=== PATIENT | female | born 1980 | race Caucasian/White ===

== ENCOUNTER 2020-08-24 10:41 | Emergency (ER) | payer OTHER, SELFPAY ==
[2020-08-24 10:42] VITALS: BP 131/79; PULSE 94; RESP 16; TEMP 36.5; O2SAT 99; BMI 31.1
--- NOTE | 2020-08-24 10:57 | EKG12_ITS ---
Test Reason : CP Blood Pressure : / mmHG Vent. Rate : 081 BPM Atrial Rate : 081 BPM P-R Int : 156 ms QRS Dur : 076 ms QT Int : 348 ms P-R-T Axes : 069 072 060 degrees QTc Int : 404 ms Normal sinus rhythm with sinus arrhythmia Normal ECG Confirmed by CYN LEMOS, WESLEY ([id number]), staff editor JENNIFER CHAPPELL ([id number]) on 08/27/2020 2:57:15 PM Referred By: DARRICK Confirmed By:WESLEY ADDISON MD
--- NOTE | 2020-08-24 10:57 | EX.ED.DYSGE1 ---
HPI History of Present Illness Chief Complaint: Chest Pain Informant: patient Narrative Narrative: 40-year-old female states that she woke this morning around 0400 had a sharp pain She needed to go into work and open up the business right upper chest. She states nothing seems to make it better or worse. and then once that was done she called her boss and went to urgent care they did an EKG and advised her to come to the emergency. She denies any DVT PE risk factors. She states nothing she does not recall anything that would have injured her chest. She denies any cough or fever. She states that the pain has gotten significantly better than when it first started PFSH PFSH Medical History Arthritis Smoker Home Medications No Known/Unobtainable [No Known Home Medications] 03/16/15 [History Last Taken Unknown] Allergy/AdvReac Type Severity Reaction Status Date / Time No Known Allergies Allergy Verified 07/13/14 13:39 Surgical History History of appendectomy Social History (Updated 08/24/20 @ 10:[address] Emil Moore DO) Smoking Status: Current every day smoker substance use type: does not use ROS ROS ED Constitutional Constitutional ED: Denies chills or weight loss Eyes Eyes: Denies change in vision or diplopia ENT ENT ED: Denies ear pain, rhinorrhea or sore throat Cardiovascular Cardiovascular: Reports chest pain; Denies orthopnea, palpitations or racing heartbeat Respiratory/Chest Respiratory/Chest: Denies cough, dyspnea or orthopnea Gastrointestinal Gastrointestinal: Denies abdominal pain, diarrhea, nausea or vomiting Genitourinary Genitourinary ED: Denies dysuria, hematuria or urinary frequency Musculoskeletal Musculoskeletal: Denies arthralgias or myalgias Integumentary Denies abscess or rash Neurologic Neurologic: Denies headache(s) or weakness Psychiatric Psychiatric: Denies anxiety, depression, suicidal ideation or suicidal thoughts Endocrine Endocrinology: Denies polydipsia, polyphagia or polyuria Allergic/Immunologic Allergic/Immunologic ED: Denies mouth swelling, tongue swelling or urticaria EXAM Physical Exam Const Vital Signs: 08/24/20 10:42 08/24/20 10:47 Temperature 97.7 F L Temperature Source Temporal Pulse Rate 94 Respiratory Rate 16 Respiratory Effort Normal Non-Labored Blood Pressure 131/79 H Blood Pressure Mean 96 Pulse Ox 99 Oxygen Delivery Method Room Air Positive well nourished and well developed General Appearance ED: well developed HEENT Reports normocephalic, head/scalp atraumatic and moist mucous membranes Eyes PERRL and EOMs intact bilaterally Neck no lymphadenopathy, supple and no JVD Resp normal respiratory effort and clear to auscultation bilaterally Cardio regular rate, regular rhythm and no murmurs GI normal to inspection, nondistended, normoactive bowel sounds and non-tender Palpation: soft Back/Spine no CVA tenderness and normal ROM Extremity normal to inspection General Extremety ED: Negative for edema General Extremity: Negative for edema Neuro oriented x3 and CN's II-XII intact bilaterally Sensorium / Orientation: alert Motor Exam: strength 5/5 throughout Psych mental status grossly normal Mood & Affect: Negative for depressed or tearful Skin no rashes or lesions noted and no wounds MDM MDM MDM Narrative Medical decision making narrative: My impression of the patient's chest x-ray is no acute process. Basic blood work including D-dimer troponin negative. At this point I think the patient can be safely discharged home. I think that this is not represent PE dissection or other acute emergency that would require admission. Return if worsening or concerns Lab Data Labs: Laboratory Results - last 24 hr 08/24/20 08/24/20 08/24/20 10:00 10:00 10:00 WBC 10.7 RBC 4.84 Hgb 15.1 H Hct 46.7 MCV 96.5 MCH 31.2 MCHC 32.3 RDW Std Deviation 43.8 RDW Coeff of Danielle 12.3 Plt Count 278 MPV 10.9 Immature Gran % (Auto) 0.400 Neut % (Auto) 66.4 Lymph % (Auto) 25.4 [place] % (Auto) 5.5 Eos % (Auto) 1.8 Baso % (Auto) 0.5 Absolute Neuts (auto) 7.1 Absolute Lymphs (auto) 2.71 Nucleated RBC % 0 D-Dimer Quant (PE/DVT) 0.34 Sodium 136 Potassium 4.2 Chloride 106 Carbon Dioxide 25.0 Anion Gap 5 BUN 12 Creatinine 0.82 Estim Creat Clear Calc 73.57 Est GFR (MDRD) Af Amer 101 Est GFR (MDRD) Non-Af 83 BUN/Creatinine Ratio 14.7 Glucose 104 Calcium 10.6 H Troponin I < 0.015 EKG Initial EKG: Attestation: I personally reviewed and interpreted this EKG as follows: Comments: EKG shows a normal sinus rhythm with sinus arrhythmia at a rate of 81 no concerning features of ACS or ectopy noted Discharge Plan Triage Chief Complaint: Chest Pain ED Provider: Emil Moore Dx/Rx/DC Orders Clinical Impression: Chest pain Instructions: ED Chest Pain, Uncertain Cause Prescriptions: No Action No Known Home Medications RF: 0 Stand Alone Forms: ED Work / School Excuse Primary Care Provider: Анна Mehta NP Referrals: Анна Mehta NP, [employer] [Primary Care Provider] - As Needed Disposition Disposition: Home, self care
[2020-08-24 11:14] LABS: Absolute Lymphocyte Count 2.71 X10^3/uL (0.83-4.51); Absolute Neutrophil Count 7.1 X10^3/uL (2.0-7.7); Basophil# 0.05 X10^3/uL; Basophil% 0.5 % (0-1); Eosinophil# 0.19 X10^3/uL; Eosinophils% 1.8 % (0-5); Hematocrit 46.7 % (37-47); Hemoglobin 15.1 g/dL (12.0-15.0); Lymphocyte # 2.71 X10^3/ul (0.83-4.51); Lymphocyte % 25.4 % (19-41); Mean Corp Hgb Conc 32.3 g/dL (32-36); Mean Corpuscular Hgb 31.2 pg (27.0-32.0); Mean Corpuscular Volume 96.5 fL (81-99); Mean Platelet Vol. 10.9 fl (6.2-12.0); Monocyte# 0.59 X10^3/uL; Monocyte% 5.5 % (0-10); NRBC Flagged by Analyzer 0 % (0-5); Neutrophil # 7.08 X10^3/uL (2.7-7.7); Neutrophil % 66.4 % (47-70); Platelet Count 278 K/mm3 (150-450); RBC Distribution Width CV 12.3 % (11.6-14.6); RBC Distribution Width SD 43.8 fl (35.1-43.9); Red Blood Count 4.84 M/mm3 (4.2-5.4); White Blood Count 10.7 K/mm3 (4.4-11.0)
--- NOTE | 2020-08-24 11:16 | RAD_ITS ---
STUDY: X-RAY CHEST REASON FOR EXAM: Female, 40 years old. Chest pain TECHNIQUE: Single AP portable view of the chest. COMPARISON: None. FINDINGS: EKG electrodes are seen. The lungs are clear and expanded. There is no demonstrated pleural abnormality. Normal size heart. Normal mediastinum and eugenia. Normal visualized pulmonary arteries. Normal visualized aortic arch and descending thoracic aorta. Normal visualized thoracic spine. Normal visualized ribs, clavicles, and shoulders. There is no demonstrated abnormality of the visualized soft tissue structures of the upper abdomen. RAD/Chest 1 View (Portable) IMPRESSION: Normal x-ray examination of the chest. Electronically Signed: Neir Godinez MD at 12:02 EDT , Service support ,
[2020-08-24 11:23] LABS: D-Dimer Quantitative (DVT/PE) 0.34 FEU/ug/m (0.27-0.49)
[2020-08-24 11:31] LABS: Anion Gap 5 (5-15); BUN 12 mg/dL (7-18); BUN/Creat Ratio 14.7 RATIO (10-20); Calcium,Total 10.6 mg/dL (8.5-10.1); Chloride 106 mmol/L (98-107); Creatinine, Serum 0.82 mg/dL (0.55-1.02); EST Glomerular Filtration Rate 83 mL/min (>60); Est Glom Filt Rate - Afr Amer 101 mL/min (>60); Estimated Creatinine Clearance 73.57 ml/min; Glucose 104 mg/dL (74-106); Potassium 4.2 mmol/L (3.5-5.1); Sodium Level 136 mmol/L (136-145)
[2020-08-24 11:46] VITALS: BP 126/80; PULSE 89; RESP 16; O2SAT 98
== END 2020-08-24 11:47 | disposition home or self-care (01) ==
PROVIDERS: Emergency Provider Emergency Medicine; PCP Nurse Practitioner Family
DX: R07.9 Chest pain, unspecified (principal); M19.90 Unspecified osteoarthritis, unspecified site; F17.200 Nicotine dependence, unspecified, uncomplicated
CPT/HCPCS: 71045; 80048; 84484; 85025; 85379; 93005; 99284; A4216

== ENCOUNTER → 2020-12-16 | Outpatient (CLI) | payer OTHER, SELFPAY | END | disposition home or self-care (01) | LOC: LABSPEC 12-18 11:27 | PROVIDERS: PCP Nurse Practitioner Family; Referring Provider Nurse Practitioner Family; Visit Provider Nurse Practitioner Family | DX: R05 Cough (principal) | CPT/HCPCS: 87635; U0005; U0003 ==

== ENCOUNTER 2024-05-26 07:06 | Emergency (ER) | payer OTHER, SELFPAY ==
[2024-05-26 07:07] VITALS: BP 120/88; PULSE 96; RESP 18; TEMP 36.4; O2SAT 98; BMI 28.3
[2024-05-26 07:09] VITALS: BP 120/88; PULSE 96; RESP 18; TEMP 36.4; O2SAT 98
--- NOTE | 2024-05-26 07:18 | RAD_ITS ---
PROCEDURE: CHEST 1 VIEW (PORTABLE) REASON FOR EXAM: 44-year-old female, fever, cough, shortness of breath and chest tightness. TECHNIQUE: Frontal view of the chest. COMPARISON: Chest radiograph 08/24/2020. FINDINGS: The heart size is normal. The lungs are clear. No focal consolidation, pleural effusion or pneumothorax. The bones are unremarkable. RAD/Chest 1 View (Portable) IMPRESSION: NEGATIVE CHEST. Reading Location: [id number]
--- NOTE | 2024-05-26 07:23 | EX.ED.DYSGE1 ---
HPI History of Present Illness Chief Complaint: Shortness of Breath Detail of Chief Complaint: Fever, cough, shortness of breath Informant: patient Narrative Narrative: Patient presents the emergency department with complaint of not feeling well for about 6 days. Patient states that she thought she was getting better but started feeling a little more short of breath yesterday and then again this morning. Patient states that she felt panicky and she does have history of anxiety. She had a fever 2 days ago 200.9. Her was sick last week also but tested negative for COVID. Patient bringing up some phlegm at times. She has history of mild asthma and normally has an inhaler but her inhaler is currently empty. She denies recent travel or surgery. She denies significant chest discomfort. She tells me she has been vaccinated against the flu as well as COVID and she has had the pneumonia shot. No other significant medical history. PFSH PFS Medical History Arthritis Smoker Home Medications ?Medication ?Instructions ?Recorded ?Last Taken ?Type prednisone 20 mg tablet 20 mg PO BID #10 tabs 05/26/24 Unknown Rx Allergy/AdvReac Type Severity Reaction Status Date / Time No Known Allergies Allergy Verified 05/26/24 07:06 Family History no significant family his Surgical History History of appendectomy Social History Smoking Status: Current every day smoker substance use type: does not use ROS ROS ED Review of Systems ROS Unobtainable: other Constitutional Constitutional ED: Reports lethargy; Denies chills, fever(s), sweats or weight loss Eyes Eyes: Denies blurry vision, change in vision or diplopia ENT ENT ED: Denies rhinorrhea or sore throat Cardiovascular Cardiovascular: Denies chest pain, orthopnea or racing heartbeat Respiratory/Chest Respiratory/Chest: Reports cough, dyspnea and dyspnea on exertion; Denies orthopnea or sputum Gastrointestinal Gastrointestinal: Denies abdominal pain, diarrhea, nausea or vomiting Genitourinary Genitourinary ED: Denies dysuria, hematuria or urinary frequency Musculoskeletal Musculoskeletal: Denies arthralgias, back pain, myalgias or neck pain Integumentary Denies abscess, Abrasions or rash Neurologic Neurologic: Denies headache(s) or weakness Psychiatric Psychiatric: Denies anxiety, depression or suicidal thoughts Endocrine Endocrinology: Denies polydipsia, polyphagia or polyuria Hematologic/Lymphatic Hematologic/Lymphatic: Denies easy bleeding, easy bruising or lymphadenopathy Allergic/Immunologic Allergic/Immunologic ED: Denies mouth swelling, tongue swelling or urticaria EXAM Physical Exam Const Vital Signs: 05/26/24 07:07 05/26/24 07:09 05/26/24 07:25 Temperature 97.6 F L 97.6 F L Temperature Source Oral Oral Pulse Rate 96 96 Respiratory Rate 18 18 Respiratory Effort Short of Breath Respiratory Pattern Blood Pressure 120/88 H 120/88 H Blood Pressure Mean 98 98 Pulse Ox 98 98 Oxygen Delivery Method Room Air Room Air Room Air 05/26/24 07:27 05/26/24 08:06 05/26/24 08:07 Temperature 97.8 F Temperature Source Temporal Pulse Rate 83 88 Respiratory Rate 16 21 H Respiratory Effort Respiratory Pattern Normal Blood Pressure 121/76 H 121/76 H Blood Pressure Mean 91 91 Pulse Ox 94 Oxygen Delivery Method Room Air Positive well nourished and well developed General Appearance ED: well developed and NAD HEENT Reports TM's clear and moist mucous membranes normocephalic and atraumatic; Negative for trauma or tenderness Tympanic Membrane ED: Yes TM's clear Eyes PERRL and EOMs intact bilaterally General Eye ED: Negative for pale conjunctiva or scleral icterus Neck no lymphadenopathy, supple and no JVD General: Negative for tenderness Chest Wall inspection of chest normal and palpation of chest normal Chest: Negative for tenderness Resp normal respiratory effort and No clear to auscultation bilaterally Resp Narrative: Occasional faint expiratory wheeze. No accessory muscle use or retractions. No conversational dyspnea. Effort and Inspection: Negative for respiratory distress or pain with movement Auscultation: wheezes; Negative for rhonchi or diminished lung sounds Cardio regular rate, regular rhythm, S1 normal heart sound, S2 normal heart sound and no murmurs Peripheral Pulses: pulses 2+ throughout GI normal to inspection, nondistended, normoactive bowel sounds, soft to palpation, non-tender, non-distended and no masses Back/Spine no CVA tenderness and no thoracic nor lumbar tenderness Extremity normal to inspection General Extremety ED: Negative for edema General Extremity: Negative for edema Neuro oriented x3, CN's II-XII intact bilaterally, no sensory deficits noted and gait normal Sensorium / Orientation: awake, alert, oriented to person, oriented to place and oriented to time Motor Exam: strength 5/5 throughout and strength abnormal Psych mental status grossly normal Skin no rashes or lesions noted and no wounds MDM MDM MDM Narrative Medical decision making narrative: Patient presents with cough and shortness of breath with illness that been ongoing for about 6 days. She had a low-grade fever 2 days ago. Cough mostly nonproductive but occasionally she will bring up some phlegm. Clinically she looks well and vital signs are all stable. Patient had a COVID flu and RSV testing that was negative. She had a chest x-ray that showed no evidence of infiltrate or pneumonia. She was given a DuoNeb aerosol and she did have some improvement with that symptomatically. I will dispense her an albuterol MDI and will write her for prednisone. Recommended she follow-up with her primary care physician within next 3 to 5 days. Suspect likely viral asthmatic bronchitis. Lab Data Attestation: I reviewed the patient's lab results. Radiography Diagnostic Testing: Clinical Impression(s) from Imaging Studies Chest X-Ray 05/26/24 07:18 IMPRESSION: NEGATIVE CHEST. Reading Location: [facility] Discharge Plan Triage Chief Complaint: Shortness of Breath ED Provider: Vito Zamudio Dx/Rx/DC Orders Clinical Impression: Viral URI, Asthmatic bronchitis Instructions: ED Bronchitis with Wheezing (Adult), ED URI, Viral, No Abx (Adult) Prescriptions: New prednisone 20 mg tablet 20 mg PO BID Qty: 10 0RF Primary Care Provider: Анна Mehta NP Referrals: Анна Mehta NP, [employer]INE TECHNICIAN[employer] [Primary Care Provider] - 3-5 Days Print Language: Yoruba Disposition Disposition: Home, Self Care
[2024-05-26] MEDS: Ipratropium/Albuterol Sulfate 3 ML AMPUL.NEB INHALATION (07:26)
[2024-05-26 07:27] VITALS: PULSE 83; RESP 16
[2024-05-26 08:06] VITALS: BP 121/76
[2024-05-26 08:07] VITALS: BP 121/76; PULSE 88; RESP 21; TEMP 36.6; O2SAT 94
[2024-05-26 08:40] VITALS: BP 113/81; PULSE 88; RESP 18; TEMP 36.5; O2SAT 94
[2024-05-26] MEDS: Albuterol Sulfate 8 gm Inhaler (60 puffs) 2 PUFF INHALATION (08:45)
== END 2024-05-26 08:46 | disposition home or self-care (01) ==
PROVIDERS: Emergency Provider Emergency Medicine; PCP Nurse Practitioner Family; Visit Provider Emergency Medicine
DX: J06.9 Acute upper respiratory infection, unspecified (principal); J45.909 Unspecified asthma, uncomplicated; F17.200 Nicotine dependence, unspecified, uncomplicated; R06.02 Shortness of breath
CPT/HCPCS: 71045; 87631; 94640; 99282

== ENCOUNTER 2025-03-16 16:54 | Emergency (ER) | payer OTHER, SELFPAY ==
[2025-03-16 16:54] VITALS: BP 156/97; PULSE 88; RESP 20; TEMP 36.6; O2SAT 100; BMI 30.8
--- NOTE | 2025-03-16 16:57 | EDS_ITS ---
HPI History of Present Illness HPI Narrative: Patient presents with right thumb pain that has been constant for the past 6 weeks. Patient denies any trauma or injury. Patient states it is over the right thumb and radial aspect of her right wrist. Patient describes the pain as burning and cramping. Patient states it is worse with certain movements. Patient states she has been using an [id number] brace with no relief. Patient states nothing seems to help with her pain. Patient denies any paresthesias or weakness. Chief Complaint: Upper Extremity Injury Informant: patient Onset/Context/Timing Onset: Weeks (6) Context: Gradual Onset Timing: Continuous Quality of Pain: Burning and - (Cramping) Location: Right thumb and radial aspect right wrist Worsened by: Movement Relieved by: Nothing Associated Symptoms Associated Symptoms: Negative for Parasthesia, Weakness or Loss of Funtion PFSH PFSH Medical History Arthritis Smoker Home Medications ?Medication ?Instructions ?Recorded ?Last Taken ?Type prednisone 20 mg tablet 20 mg PO BID #10 tabs Unknown Rx naproxen 500 mg tablet 500 mg PO BID PRN #20 tabs 1 05/17/24 Unknown Rx Allergy/AdvReac Type Severity Reaction Status Date / Time No Known Allergies Allergy Verified 03/16/25 16:55 Surgical History History of appendectomy Social History (Updated 03/16/25 @ 17:[address] Heriberto Shipley, DO) Smoking Status: Current every day smoker tobacco type: cigarettes substance use type: marijuana ROS ROS ED Constitutional Constitutional ED: Denies chills or fever(s) Eyes Eyes: Denies blurry vision or change in vision ENT ENT ED: Denies rhinorrhea or sore throat Cardiovascular Cardiovascular: Denies chest pain or palpitations Respiratory/Chest Respiratory/Chest: Denies cough or dyspnea Gastrointestinal Gastrointestinal: Denies nausea or vomiting Genitourinary Genitourinary ED: Denies dysuria or hematuria Musculoskeletal Musculoskeletal: Denies back pain or neck pain Integumentary Denies abscess or rash Neurologic Neurologic: Denies headache(s) or weakness Allergic/Immunologic Allergic/Immunologic ED: Denies mouth swelling or urticaria EXAM Physical Exam Const Vital Signs: 03/16/25 16:54 Temperature 97.9 F Temperature Source Temporal Pulse Rate 88 Respiratory Rate 20 H Blood Pressure 156/97 H Blood Pressure Mean 116 Pulse Ox 100 Oxygen Delivery Method Room Air Positive well nourished and well developed General Appearance ED: well developed and NAD HEENT Reports moist mucous membranes Neck full ROM and supple Extremity Extremity Narrative: There is tenderness over the radial aspect of the right wrist and dorsal aspect of the right thumb. There is some mild edema. There is no ecchymosis. There is some mild tenderness over the anatomic snuffbox. There is no deformity noted. There is a positive Gerardo's test. Range of motion was limited in all motions of the right thumb secondary to pain. Sensation was intact to light touch in the radial, median, and ulnar areas. Strength is 5/5 in the radial, median, and ulnar areas. Radial pulses are equal bilaterally. Neuro oriented x3, CN's II-XII intact bilaterally, moves all extremities, no focal motor deficits and no sensory deficits noted Sensorium / Orientation: alert Motor Exam: strength 5/5 throughout Psych mental status grossly normal MDM MDM MDM Narrative Medical decision making narrative: Differential diagnosis includes occult scaphoid fracture, and de Quervain's tenosynovitis. X-rays of the right wrist with navicular view will be obtained to assess for occult scaphoid fracture. Radiography Diagnostic Testing: X-rays of the right wrist were obtained. There are 4 views. On my independent interpretation, there is no acute fracture noted. There is no dislocation noted. Radiologist also interpreted the x-rays and agrees. Treatment and Re-Evaluation Narrative: Patient was given a thumb spica splint. Patient was instructed to ice and elevate her right wrist. Patient was given a prescription for Naprosyn for pain. Patient was instructed to follow-up with her primary care physician in 5 to 7 days. Patient understood and was agreeable with the plan. All questions were answered. Discharge Plan Triage Chief Complaint: Upper Extremity Injury ED Provider: Heriberto Shipley Dx/Rx/DC Orders Clinical Impression: De Quervain's tenosynovitis, right, Tobacco use Instructions: ED De Quervain Tenosynovitis Prescriptions: New naproxen 500 mg tablet 500 mg PO BID PRN Qty: 20 0RF No Action prednisone 20 mg tablet 20 mg PO BID Qty: 10 0RF Primary Care Provider: Анна Mehta NP Referrals: Анна Mehta NP, AGRICULTURAL ENGINEER-C [Primary Care Provider, [facility]] - 5-7 Days Print Language: Micronesian Disposition Disposition: Home, Self Care
--- NOTE | 2025-03-16 17:12 | RAD_ITS ---
PROCEDURE: WRIST MIN 3 VIEWS 03/16/2025 REASON FOR EXAM: INJURY/PAIN TECHNIQUE: Procedure Code: RADWR Modality: DX Procedure: WRIST MIN 3 VIEWS Laterality: Right COMPARISON: None. FINDINGS: No acute fracture or dislocation. Alignment is anatomic. Preserved joint spaces. No aggressive osseous lesion. No marked soft tissue swelling or radiopaque foreign body. RAD/Wrist min 3 Views IMPRESSION: No acute fracture or dislocation. Reading Location: [id number]
[2025-03-16 18:15] VITALS: BP 121/82; PULSE 90; RESP 18; TEMP 36.8; O2SAT 100
== END 2025-03-16 18:16 | disposition home or self-care (01) ==
PROVIDERS: Emergency Provider Emergency Medicine; PCP Nurse Practitioner Family; Visit Provider Emergency Medicine
DX: M65.4 Radial styloid tenosynovitis [de Quervain] (principal); F17.210 Nicotine dependence, cigarettes, uncomplicated; Z90.49 Acquired absence of other specified parts of digestive tract
CPT/HCPCS: 73110; 99282